=== PATIENT | male | born 1985 | race Caucasian/White ===

== ENCOUNTER 2017-03-20 01:57 | Emergency (ER) | payer BC ==
[2017-03-20 02:05] VITALS: BP 126/79
[2017-03-20] MEDS ORDERED: Clindamycin HCl 150 MG Cap PO ONE (02:26)
[2017-03-20] MEDS ORDERED: Acetaminophen/HYDROcodone 325-10 MG Tab PO ONE (02:26)
--- NOTE | 2017-03-20 02:28 | EDM.PDOC ---
ED HPI GENERAL MEDICAL PROBLEM - General Chief Complaint: ENT Problem Stated Complaint: JAW PAIN [id number] Time Seen by Provider: 03/20/17 02:24 Source of Information: Reports: Patient History Limitations: Reports: No Limitations - History of Present Illness INITIAL COMMENTS - FREE TEXT/NARRATIVE: teeth being Tx for implants and was eating bread earlier. Bilateral Lower Face Pain Score (Numeric/FACES): 6 - Related Data Allergies Allergy/AdvReac Type Severity Reaction Status Date / Time No Known Allergies Allergy Verified 03/20/17 02:01 Home Meds: Home Meds . [No Known Home Meds] 03/20/17 [History] Past Medical History HEENT History: Reports: None Cardiovascular History: Reports: Heart Murmur Respiratory History: Reports: None Gastrointestinal History: Reports: None Genitourinary History: Reports: None Musculoskeletal History: Reports: None Neurological History: Reports: None Psychiatric History: Reports: None Endocrine/Metabolic History: Reports: None Hematologic History: Reports: None Immunologic History: Reports: None Oncologic (Cancer) History: Reports: None Dermatologic History: Reports: None Social & Family History - Tobacco Use Smoking Status *Q: Never Smoker - Recreational Drug Use Recreational Drug Use: No ED ROS ENT - Review of Systems Review Of Systems: ROS reveals no pertinent complaints other than HPI. ED EXAM, ENT - Physical Exam Exam: See Below Exam Limited By: No Limitations General Appearance: Alert, WD/WN, Mild Distress, Moderate Distress, Other (pain) Ears: Hearing Grossly Normal Mouth/Throat: Dental Abcess, Dental Pain, Dental Tenderness, Other (multiple dental caries) Head: Atraumatic Neck: Non-Tender, Full Range of Motion Respiratory/Chest: No Respiratory Distress Cardiovascular: Regular Rate, Rhythm GI/Abdominal: Soft, Non-Tender Neurological: Alert, Oriented, Normal Cognition, Normal Gait, No Motor/Sensory Deficits Psychiatric: Tearful Skin: Warm, Dry, Normal Color Lymphatic: No Adenopathy Course - Vital Signs Last Recorded V/S: Last Vital Signs Temp 35.3 C 03/20/17 02:01 Pulse 60 03/20/17 02:01 Resp 18 03/20/17 02:01 BP 126/79 03/20/17 02:01 Pulse Ox 97 03/20/17 02:01 Departure - Departure Time of Disposition: 02:26 Disposition: Home, Self-Care 01 Condition: Good Clinical Impression: Dental abscess, Dental caries - Discharge Information Additional Instructions: 1) see dentist
[2017-03-20] MEDS ORDERED: Clindamycin HCl 150 MG Cap ONE (02:33)
== END 2017-03-20 02:37 | disposition home or self-care (01) ==
LOC: DL.ED 01:57
DX: K04.7 Periapical abscess without sinus (principal); K02.9 Dental caries, unspecified
CPT/HCPCS: 99282; A9270